=== PATIENT | female | born 1995 | race Caucasian/White ===

== ENCOUNTER 2021-05-04 16:11 | Outpatient (CLI) | payer OTHER | END 2021-05-04 16:12 | disposition home or self-care (01) | LOC: SCSRAD 16:11 | PROVIDERS: ATTEND Family Medicine | DX: M79.605 Pain in left leg (principal) ==

== ENCOUNTER 2023-01-03 14:55 | Outpatient (CLI) | payer BC | END 2023-01-03 14:56 | disposition home or self-care (01) | LOC: SCSMRI 14:55 | PROVIDERS: ATTEND Family Medicine | DX: R22.42 Localized swelling, mass and lump, left lower limb (principal) ==